=== PATIENT | male | born 1955 | race Caucasian/White ===

== ENCOUNTER 2023-10-12 07:53 | Emergency (ER) | payer OTHER, MEDICARE ==
[~2023-10-12] VITALS: Ht 165.1 cm; Wt 79.4 kg
[~2023-10-12 07:53] MED LIST: AMLODIPINE5 MG PO; CLARITIN10 MG; DOXYCYLINE50 MG PO; LEVOFLOXACIN500 MG PO; NEXIUM40 MG; RANITIDINE150 MG; TENORMIN25 MG PO; VITAMIN D400 IU; VYTORIN 10 MG-41 TA2
[2023-10-12 08:31] LABS: BASO # 0.1 10*3/uL (0.0-0.1); BASO % 1.2 % (0.0-1.0); EOS # 0.1 10*3/uL (0.0-0.4); EOS % 2.1 % (1.0-4.0); HEMATOCRIT 45.6 % (42.0-52.0); LYMPH # 1.4 10*3/uL (1.3-4.4); LYMPH % 29.7 % (27.0-41.0); MEAN CORPUSCULAR HGB 32.8 pg (27.0-31.0); MEAN CORPUSCULAR HGB CONC 34.2 g/dl (33.0-37.0); MEAN PLATELET VOLUME 10.6 fl (9.6-12.3); MONO # 0.6 10*3/uL (0.1-1.0); MONO % 12.1 % (3.0-9.0); NEUT # 2.6 10*3/uL (2.3-7.9); NEUT % 54.5 % (47.0-73.0); PLATELET COUNT AUTOMATED 143 10*3/uL (130-400); RED BLOOD COUNT 4.75 10*6/uL (4.50-5.90); RED CELL DISTRI WIDTH 13.4 % (0-14.5); WHITE BLOOD COUNT 4.8 10*3/uL (4.8-10.8)
[2023-10-12 08:46] LABS: ACT PARTIAL THROMBO TIME 28.2 SECONDS (20.0-32.1)
[2023-10-12 08:55] LABS: ALKALINE PHOSPHATASE 55 U/L (46-116); BUN 16 mg/dl (9-23); CHLORIDE 106 mmol/L (98-107); LIPASE 45 U/L (12-53); POTASSIUM 4.1 mmol/L (3.4-5.1); SGPT/ALT 43 U/L (5-49); TOTAL PROTEIN 6.9 gm/dL (6.0-8.0)
[2023-10-12 08:56] LABS: ETHYL ALCOHOL < 3.0 mg/dl (<3)
[2023-10-12 09:14] VITALS: BP 175/75
[2023-10-12 10:29] LABS: BILIRUBIN Negative (Negative); BLOOD Negative (Negative); CLARITY Clear (Clear); COLOR Yellow (Yellow); GLUCOSE 1+ (Negative); KETONE Negative (Negative); LEUKO ESTERASE Negative (Negative); NITRITE Negative (Negative); PH 5.5 (4.5-8.0); UROBILINOGEN 0.2 E.U./dl (0.0-1.0)
[2023-10-12 10:57] LABS: URINE AMPHETAMINES Negative (1000ng/ml); URINE BARBITURATES Negative (200ng/ml); URINE BENZODIAZEPINES Negative (200ng/ml); URINE CANNABINOIDS (THC) Negative (50ng/ml); URINE COCAINE Negative (300ng/ml); URINE METHADONE Negative (300ng/ml); URINE OPIATES Negative (300ng/ml); URINE PHENCYCLIDINE Negative (25ng/ml)
[2023-10-12 11:02] LABS: BACTERIA TRACE; EPITHELIAL CELLS 0-2; WBC 0-2 wbc/hpf (0-5)
[2023-10-12] MEDS ORDERED: PEPCID AC10 M2 PO (11:18)
== END 2023-10-12 11:37 | disposition home or self-care (01) ==
LOC: ED 07:53
PROVIDERS: Internal Medicine
DX: K29.70 Gastritis, unspecified, without bleeding (principal); R07.89 Other chest pain; M54.9 Dorsalgia, unspecified; K21.9 Gastro-esophageal reflux disease without esophagitis; I10 Essential (primary) hypertension; I25.2 Old myocardial infarction; Z88.5 Allergy status to narcotic agent; Z90.49 Acquired absence of other specified parts of digestive tract; Z98.890 Other specified postprocedural states

== ENCOUNTER 2025-09-24 09:30 | Inpatient (IN) | payer OTHER, MEDICARE ==
[~2025-09-24] VITALS: Ht 165.1 cm; Wt 77.1 kg
[~2025-09-24 09:30] MED LIST changes: +PEPCID AC10 M2 PO
[2025-09-24] MEDS ORDERED: SODIUM CHLORIDE 0.9% 1,000 ML IV ONE ×3 (09:55→15:05)
[2025-09-24] MEDS ORDERED: AUGMENTIN 500500 M1 PO (10:11)
[2025-09-24] MEDS ORDERED: ALLOPURINOL300 MG PO (10:11)
[2025-09-24] MEDS ORDERED: VAZALORE81 MG PO (10:12)
[2025-09-24] MEDS ORDERED: PLAVIX75 M1 PO (10:12)
[2025-09-24 10:13] LABS: BASO # 0.1 10*3/uL (0.0-0.1); BASO % 1.0 % (0.0-1.0); EOS # 0.1 10*3/uL (0.0-0.4); EOS % 1.8 % (1.0-4.0); MEAN CELL VOLUME 92.4 fl (80.0-94.0); MEAN CORPUSCULAR HGB 31.1 pg (27.0-31.0); MEAN PLATELET VOLUME 10.7 fl (9.6-12.3); MONO # 0.7 10*3/uL (0.1-1.0); MONO % 10.4 % (3.0-9.0); NEUT # 4.3 10*3/uL (2.3-7.9); NEUT % 68.1 % (47.0-73.0); NUCLEATED RED BLOOD CELL 0.0 % (0.0-0.0); NUCLEATED RED BLOOD CELL 0.0 10*3/uL (0.0-0.0); PLATELET COUNT AUTOMATED 250 10*3/uL (130-400); RED CELL DISTRI WIDTH 13.6 % (0-14.5)
[2025-09-24] MEDS ORDERED: LISINOPRIL5 MG PO (10:14)
[2025-09-24] MEDS ORDERED: BENTYL PO (10:14)
[2025-09-24 10:19] VITALS: BP 105/74
[2025-09-24] MEDS ORDERED: NIACIN500 M1 PO (10:33)
[2025-09-24] MEDS ORDERED: KAPSPARGO SPRI100 MG PO (10:33)
[2025-09-24 10:34] LABS: BUN 28.0 mg/dl (9-23)
[2025-09-24] MEDS ORDERED: TRICOR145 M1 PO (10:34)
[2025-09-24] MEDS ORDERED: MAGNESIUM OXID400 MG PO (10:36)
[2025-09-24] MEDS ORDERED: BISACODYL 10 MG SUPP R PRN (13:55)
[2025-09-24] MEDS ORDERED: TEMAZEPAM 15 MG CAP PO PRN (13:55)
[2025-09-24] MEDS ORDERED: ACETAMINOPHEN 325 MG TAB PO PRN (13:55)
[2025-09-24] MEDS ORDERED: BISACODYL 5 MG TAB PO PRN (13:55)
[2025-09-24] MEDS ORDERED: Ondansetron Hydrochloride 4 MG/2 ML VIAL IV PRN (13:55)
[2025-09-24 14:29] VITALS: BP 125/79
[2025-09-24 16:00] VITALS: BP 125/79
[2025-09-24] MEDS ORDERED: Piperacillin Sodium/Tazobact 2.25 GM in SODIUM CHLORIDE 0.9% 50 ML IV SCH (18:00)
[2025-09-24 20:00] VITALS: BP 118/76
[2025-09-24] MEDS ORDERED: HEPARIN SODIUM 5,000 UNIT/ML VIAL SC SCH (22:00)
[2025-09-25] VITALS: BP 119/73
[2025-09-25 06:35] LABS: BASO # 0.1 10*3/uL (0.0-0.1); BASO % 1.4 % (0.0-1.0); EOS # 0.2 10*3/uL (0.0-0.4); EOS % 3.3 % (1.0-4.0); MEAN CELL VOLUME 93.6 fl (80.0-94.0); MEAN CORPUSCULAR HGB 31.1 pg (27.0-31.0); MEAN PLATELET VOLUME 10.7 fl (9.6-12.3); MONO # 0.7 10*3/uL (0.1-1.0); MONO % 13.2 % (3.0-9.0); NEUT # 2.8 10*3/uL (2.3-7.9); NEUT % 54.7 % (47.0-73.0); NUCLEATED RED BLOOD CELL 0.0 % (0.0-0.0); NUCLEATED RED BLOOD CELL 0.0 10*3/uL (0.0-0.0); PLATELET COUNT AUTOMATED 192 10*3/uL (130-400); RED CELL DISTRI WIDTH 13.7 % (0-14.5)
[2025-09-25 06:44] LABS: ACT PARTIAL THROMBO TIME 27.0 SECONDS (20.0-32.1)
[2025-09-25 07:00] LABS: BUN 21.0 mg/dl (9-23); LDL CHOLESTEROL 101.0 mg/dL (9-159); SGPT/ALT 18.0 U/L (5-49)
[2025-09-25 08:00] VITALS: BP 131/79
[2025-09-25] MEDS ORDERED: NIACIN 500 MG TAB PO SCH (10:00)
[2025-09-25] MEDS ORDERED: METOPROLOL SUCCINATE XR 100 MG TAB PO SCH (10:00)
[2025-09-25] MEDS ORDERED: ALLOPURINOL 300 MG TAB PO SCH (10:00)
[2025-09-25] MEDS ORDERED: Clopidogrel Hydrogen Sulfate 75 MG TAB PO SCH (10:00)
[2025-09-25] MEDS ORDERED: ASPIRIN ENTERIC COATED 81 MG TAB PO SCH (10:00)
[2025-09-25] MEDS ORDERED: LISINOPRIL 5 MG TAB PO SCH (10:00)
[2025-09-25] MEDS ORDERED: MAGNESIUM OXIDE 400 MG TAB PO SCH (10:00)
[2025-09-25] MEDS ORDERED: Cholecalciferol 2,000 UNIT TABLET (50 MCG) PO SCH (10:00)
[2025-09-25 12:00] VITALS: BP 134/78
[2025-09-25 16:00] VITALS: BP 129/80
[2025-09-25 20:00] VITALS: BP 126/71
[2025-09-26] VITALS: BP 137/85
[2025-09-26 06:30] LABS: BASO # 0.1 10*3/uL (0.0-0.1); BASO % 0.8 % (0.0-1.0); EOS # 0.3 10*3/uL (0.0-0.4); EOS % 3.9 % (1.0-4.0); MEAN CELL VOLUME 93.4 fl (80.0-94.0); MEAN CORPUSCULAR HGB 30.8 pg (27.0-31.0); MEAN PLATELET VOLUME 10.8 fl (9.6-12.3); MONO # 0.9 10*3/uL (0.1-1.0); MONO % 12.9 % (3.0-9.0); NEUT # 3.9 10*3/uL (2.3-7.9); NEUT % 58.8 % (47.0-73.0); NUCLEATED RED BLOOD CELL 0.0 % (0.0-0.0); NUCLEATED RED BLOOD CELL 0.0 10*3/uL (0.0-0.0); PLATELET COUNT AUTOMATED 228 10*3/uL (130-400); RED CELL DISTRI WIDTH 13.8 % (0-14.5)
[2025-09-26 07:16] LABS: BUN 16.0 mg/dl (9-23)
[2025-09-26 08:00] VITALS: BP 130/78
[2025-09-26] MEDS ORDERED: METRONIDAZOLE500 M1 PO (11:03)
[2025-09-26] MEDS ORDERED: CIPRO500 MG PO (11:03)
== END 2025-09-26 12:00 | disposition home or self-care (01) | DRG 391 ==
LOC: ED 09:30 → EDHOLD 12:37 → 5E 12:37
PROVIDERS: Emergency Medicine; ADMIT Family Medicine; ATTEND Family Medicine
DX: K57.32 Diverticulitis of large intestine without perforation or abscess without bleeding (principal); N17.0 Acute kidney failure with tubular necrosis; E87.20 Acidosis, unspecified; K29.70 Gastritis, unspecified, without bleeding; M10.9 Gout, unspecified; R73.9 Hyperglycemia, unspecified; I10 Essential (primary) hypertension; E78.5 Hyperlipidemia, unspecified; I25.10 Atherosclerotic heart disease of native coronary artery without angina pectoris; Z78.9 Other specified health status; Z90.89 Acquired absence of other organs; Z79.82 Long term (current) use of aspirin; Z79.899 Other long term (current) drug therapy